=== PATIENT | female | born 1955 | race Caucasian/White ===

== ENCOUNTER 2024-06-07 14:56 | Emergency (ER) | payer MEDICARE, BC ==
[2024-06-07] MEDS: Lidocaine 1% 30 ML SDV INJECT ONE (15:28)
[2024-06-07 16:23] VITALS: BP 132/87; PULSE 88
== END 2024-06-07 16:10 | disposition home or self-care (01) ==
LOC: VM.ED 14:56
DX: S01.311A Laceration without foreign body of right ear, initial encounter (principal); E78.00 Pure hypercholesterolemia, unspecified; Z88.0 Allergy status to penicillin; Z88.1 Allergy status to other antibiotic agents; Z88.2 Allergy status to sulfonamides; Z88.8 Allergy status to other drugs, medicaments and biological substances; Z79.890 Hormone replacement therapy; Z79.899 Other long term (current) drug therapy; W01.10XA Fall on same level from slipping, tripping and stumbling with subsequent striking against unspecified object, initial encounter
CPT/HCPCS: 12052; 70450; 99283; J3490